=== PATIENT | male | born 1990 | race Caucasian/White ===

== ENCOUNTER → 2020-05-04 | Outpatient (CLI) | payer OTHER ==
[~2020-05-04] MED LIST: CODACE30 PO; CRUTCH USE; HYDACE5 PO; IBUP200 PO; IBUP400 PO; PRED10 PO; RXCODACET PO
== END | disposition home or self-care (01) ==
LOC: LAB SHORT 16:11
DX: U07.1 COVID-19 (principal)
CPT/HCPCS: U0003